=== PATIENT | female | born 1945 | race Caucasian/White ===

== ENCOUNTER 2016-08-17 17:21 | Emergency (ER) | payer OTHER ==
[~2016-08-17] VITALS: Ht 165.1 cm; Wt 109.0 kg
[2016-08-17 18:20] LABS: MCH 29.5 PG (29.0-34.0); MCHC 33.8 G/DL (30.0-36.0); MCV 87.3 FL (83-99); MEAN PLAT.VOLUME 11.5 uM^3 (9.5-12.4); PLATELET COUNT 225 K/uL (156-360); RBC DIS.WIDTH-CV 12.4 % (11.8-14.6); RBC DIS.WIDTH-SD 39.8 % (39-53); RED BLOOD COUNT 4.81 M/uL (3.80-5.20); WHITE BLOOD COUNT 9.4 K/uL (4.1-10.2)
[2016-08-17 18:32] LABS: CHLORIDE 106 mEq/L (99-109); POTASSIUM 3.9 mEq/L (3.7-5.4); SODIUM 141 mEq/L (136-147)
[2016-08-17 18:33] LABS: GLUCOSE 102 mg/dL (70-99)
[2016-08-17 18:35] LABS: ANION GAP 9 MEQ/L (2-14)
[2016-08-17 18:37] LABS: GFR ESTIMATE (CALCULATED) 34 mL/min/
[2016-08-17 18:38] LABS: UREA NITROGEN (BUN) 16 mg/dL (9-23)
[2016-08-17 21:19] VITALS: BP 151/67
== END 2016-08-17 21:21 | disposition home or self-care (01) ==
LOC: RME 17:21 → EME 17:21 → RME 21:21
DX: R42 Dizziness and giddiness (principal); J44.9 Chronic obstructive pulmonary disease, unspecified; I10 Essential (primary) hypertension; Z99.81 Dependence on supplemental oxygen; Z85.828 Personal history of other malignant neoplasm of skin; Z99.89 Dependence on other enabling machines and devices
CPT/HCPCS: 71020; 80048; 85027; 93005; 99281; 99284

== ENCOUNTER 2016-12-22 00:10 | Observation (INO) | payer OTHER ==
[~2016-12-22] VITALS: Ht 165.1 cm; Wt 108.7 kg
[2016-12-22 01:24] LABS: HEMATOCRIT 43.2 % (36.0-46.0); MCH 29.4 PG (29.0-34.0); MCHC 33.6 G/DL (30.0-36.0); MCV 87.4 FL (83-99); MEAN PLAT.VOLUME 11.7 uM^3 (9.5-12.4); PLATELET COUNT 249 K/uL (156-360); RBC DIS.WIDTH-CV 12.5 % (11.8-14.6); RBC DIS.WIDTH-SD 39.7 % (39-53); RED BLOOD COUNT 4.94 M/uL (3.80-5.20); WHITE BLOOD COUNT 10.4 K/uL (4.1-10.2)
[2016-12-22 01:28] LABS: CHLORIDE 105 mEq/L (99-109); POTASSIUM 3.8 mEq/L (3.7-5.4); SODIUM 142 mEq/L (136-147)
[2016-12-22 01:30] LABS: GLUCOSE 129 mg/dL (70-99)
[2016-12-22 01:31] LABS: ANION GAP 10 MEQ/L (2-14)
[2016-12-22 01:34] LABS: GFR ESTIMATE (CALCULATED) 47 mL/min/; UREA NITROGEN (BUN) 24 mg/dL (9-23)
[2016-12-22 01:53] LABS: TROP-I INTERPRETATION NEGATIVE; TROPONIN-I 0.02 ng/mL (0.0-0.30)
[2016-12-22] MEDS ORDERED: OXYCODONE HCL20 M1 PO (03:58)
[2016-12-22] MEDS ORDERED: ZANAFLEX4 M1 PO (03:59)
[2016-12-22] MEDS ORDERED: LOSARTAN POTASS50 MG PO (03:59)
[2016-12-22 05:04] VITALS: BP 162/72
[2016-12-22 09:24] VITALS: BP 113/80
[2016-12-22] MEDS ORDERED: DULOXETINE HCL60 MG PO (11:10)
[2016-12-22] MEDS ORDERED: PROAIR HFA8.5 GM IH (11:11)
[2016-12-22] MEDS ORDERED: BROVANA15 MCG/2 M IH (11:11)
[2016-12-22] MEDS ORDERED: HYDROCHLOROTHIA25 MG PO (11:11)
[2016-12-22] MEDS ORDERED: PULMICORT0.25 MG/1 IH (11:11)
[2016-12-22] MEDS ORDERED: EXCEDRIN MIGRA1 EAC1 PO (11:12)
[2016-12-22] MEDS ORDERED: ADVIL,NUPRIN,M200 MG PO (11:12)
[2016-12-22] MEDS ORDERED: DUONEB 2.5-0.5 M3 ML AEROSOL (11:14)
[2016-12-22 11:31] VITALS: BP 186/84
== END 2016-12-22 13:11 | disposition home or self-care (01) ==
LOC: EME 00:10 → EDOF 03:27 → ENRESERV 03:41 → 5WEST 04:46
DX: R42 Dizziness and giddiness (principal); R51 Headache; G89.29 Other chronic pain; M54.2 Cervicalgia; M54.6 Pain in thoracic spine; F11.20 Opioid dependence, uncomplicated; M50.30 Other cervical disc degeneration, unspecified cervical region; M51.36 Other intervertebral disc degeneration, lumbar region; J44.9 Chronic obstructive pulmonary disease, unspecified; Z99.81 Dependence on supplemental oxygen; G47.33 Obstructive sleep apnea (adult) (pediatric); Z91.19 Patient's noncompliance with other medical treatment and regimen; Z85.828 Personal history of other malignant neoplasm of skin; Z87.891 Personal history of nicotine dependence; Z82.49 Family history of ischemic heart disease and other diseases of the circulatory system
CPT/HCPCS: 70450; 71020; 80048; 84484; 85027; 93005; 99281; 99285; G0378; G8978 GP CI; G8979 GP CH; G8980 GP CI; G8987 GO CI; G8988 GO CH; G8989 GO CI; J1200; J1644; J1885; J2765; J2930